=== PATIENT | female | born 1980 | race Asian ===

== ENCOUNTER 2022-03-23 11:38 | Emergency (ER) | payer MEDICARE ==
--- NOTE | 2022-03-23 12:21 | Emergency Department Report ---
HPI - HPI HPI: 42-year-old female multiple sclerosis presents to the hospital complaining of allergic reaction after bee sting. Patient denies previous allergies. Patient developed generalized hives and tongue swelling after bee sting. EMS provided Benadryl 50 mg IV and subcu epi 0.3 mg with improvement in symptoms prior to arrival. Patient states her hives and tongue swelling have improved. Patient did not receive steroids in route <NELSON COPELAND - Last Filed: 03/23/22 15:07> <RACH GORDILLO - Last Filed: 03/23/22 18:17> - General Chief Complaint: Allergic Reaction Time Seen by Provider: 03/23/22 12:16 ED Past Medical Hx - Past Medical History Previous Medical History?: Yes Additional medical history: multiple sclerosis <NELSON COPELAND - Last Filed: 03/23/22 15:07> <RACH GORDILLO - Last Filed: 03/23/22 18:17> - Medications Home Medications: Home Medications Medication Instructions Recorded Confirmed Last Taken Type diphenhydrAMINE [Benadryl CAP] 25 mg PO Q8HR PRN 5 Days #15 03/23/22 Unknown Rx capsule NS predniSONE [Deltasone] 40 mg PO QDAY 5 Days #10 tab NS 03/23/22 Unknown Rx ED Review of Systems ROS: Stated complaint: ALLERGIC REACTION Other details as noted in HPI Comment: All other systems reviewed and negative Other: General: No acute distress Head: Atraumatic Eyes: normal appearance ENT: Moist mucous membranes, no tongue swelling Neck: Normal appearance, no midline tenderness, no stridor Chest: Clear to auscultation bilaterally CV: Regular rate and rhythm Abdomen: Soft, normal bowel sounds, nontender, nondistended, no rebound or guarding Back: Normal inspection Extremity: Normal inspection, full range of motion Neuro: Alert O x 3, no facial asymmetry, speech clear, no gross motor sensory deficit Psych: Appropriate behavior Skin: No rash <NELSON COPELAND - Last Filed: 03/23/22 15:07> ROS: Stated complaint: ALLERGIC REACTION Other details as noted in HPI <RACH GORDILLO - Last Filed: 03/23/22 18:17> Physical Exam - Physical Exam Vital Signs: Vital Signs 03/23/22 12:01 Temperature 98.1 F Pulse Rate 70 Respiratory 16 Rate Blood Pressure 122/78 [Left] O2 Sat by Pulse 100 Oximetry <NELSON COPELAND - Last Filed: 03/23/22 15:07> - Physical Exam Vital Signs: Vital Signs 03/23/22 03/23/22 03/23/22 12:01 12:19 12:31 Temperature 98.1 F Pulse Rate 70 99 H 59 L Respiratory 16 18 15 Rate Blood Pressure 84/54 Blood Pressure 122/78 98/42 [Left] O2 Sat by Pulse 100 99 99 Oximetry 03/23/22 03/23/22 03/23/22 12:45 13:01 13:15 Temperature Pulse Rate 61 62 64 Respiratory 16 16 15 Rate Blood Pressure 90/60 99/65 90/56 Blood Pressure [Left] O2 Sat by Pulse 100 100 100 Oximetry 03/23/22 03/23/22 03/23/22 13:31 13:45 14:00 Temperature Pulse Rate 67 81 83 Respiratory 15 16 16 Rate Blood Pressure 92/50 95/51 92/50 Blood Pressure [Left] O2 Sat by Pulse 100 100 100 Oximetry 03/23/22 03/23/22 03/23/22 14:15 14:31 14:45 Temperature Pulse Rate Respiratory Rate Blood Pressure 94/53 89/57 95/57 Blood Pressure [Left] O2 Sat by Pulse 99 100 99 Oximetry 03/23/22 03/23/22 03/23/22 15:01 15:15 15:31 Temperature Pulse Rate 78 Respiratory 12 Rate Blood Pressure 96/58 96/58 97/59 Blood Pressure [Left] O2 Sat by Pulse 100 99 99 Oximetry 03/23/22 03/23/22 15:45 16:19 Temperature Pulse Rate 83 85 Respiratory 13 20 Rate Blood Pressure 90/57 101/53 Blood Pressure [Left] O2 Sat by Pulse 98 93 Oximetry <RACH GORDILLO - Last Filed: 03/23/22 18:17> ED Course Vital Signs 03/23/22 12:01 Temperature 98.1 F Pulse Rate 70 Respiratory 16 Rate Blood Pressure 122/78 [Left] O2 Sat by Pulse 100 Oximetry <NELSON COPELAND - Last Filed: 03/23/22 15:07> Vital Signs 03/23/22 03/23/2203/23/22 12:01 12:19 12:31 Temperature 98.1 F Pulse Rate 70 99 H 59 L Respiratory 16 18 15 Rate Blood Pressure 84/54 Blood Pressure 122/78 98/42 [Left] O2 Sat by Pulse 100 99 99 Oximetry 03/23/22 03/23/22 03/23/22 12:45 13:01 13:15 Temperature Pulse Rate 61 62 64 Respiratory 16 16 15 Rate Blood Pressure 90/60 99/65 90/56 Blood Pressure [Left] O2 Sat by Pulse 100 100 100 Oximetry 03/23/22 03/23/22 03/23/22 13:31 13:45 14:00 Temperature Pulse Rate 67 81 83 Respiratory 15 16 16 Rate Blood Pressure 92/50 95/51 92/50 Blood Pressure [Left] O2 Sat by Pulse 100 100 100 Oximetry 03/23/22 03/23/22 03/23/22 14:15 14:31 14:45 Temperature Pulse Rate Respiratory Rate Blood Pressure 94/53 89/57 95/57 Blood Pressure [Left] O2 Sat by Pulse 99 100 99 Oximetry 03/23/22 03/23/22 03/23/22 15:01 15:15 15:31 Temperature Pulse Rate 78 Respiratory 12 Rate Blood Pressure 96/58 96/58 97/59 Blood Pressure [Left] O2 Sat by Pulse 100 99 99 Oximetry 03/23/22 03/23/22 15:45 16:19 Temperature Pulse Rate 83 85 Respiratory 13 20 Rate Blood Pressure 90/57 101/53 Blood Pressure [Left] O2 Sat by Pulse 98 93 Oximetry - Reevaluation(s) Reevaluation #1: 03/23/22 17:48 pt signed out to me while just waiting her response to treatment for her allergy to bee sting--pt got up and went to the toilet and urinate. She reports feeling well and ready to be discharged. Last blood pressure noted 107/70 mmHg -- I will discharge patient home with prednisone and benadryl x 5 days 03/23/22 17:49 03/23/22 18:17 <RACH GORDILLO - Last Filed: 03/23/22 18:17> ED Medical Decision Making - Medical Decision Making 42-year-old female presents to the hospital after bee sting. Patient is feeling much better and ambulating in the ED however, she has borderline episodes of hypotension that are responsive to IV fluids. Patient requires some additional monitoring today with IV fluids to ensure resolution of hypotension prior to discharge. Case will be sent to Dr. Gordillo <NELSON COPELAND - Last Filed: 03/23/22 15:07> Critical care attestation.: If time is entered above; I have spent that time in minutes in the direct care of this critically ill patient, excluding procedure time. <NELSON COPELAND - Last Filed: 03/23/22 15:07> Critical care attestation.: If time is entered above; I have spent that time in minutes in the direct care of this critically ill patient, excluding procedure time. <RACH GORDILLO - Last Filed: 03/23/22 18:17> ED Disposition <NELSON COPELAND - Last Filed: 03/23/22 15:07> Is pt being admited?: No Does the pt Need Aspirin: No Time of Disposition: 17:55 <RACH GORDILLO - Last Filed: 03/23/22 18:17> Clinical Impression: Bee sting allergy Bee sting reaction Qualifiers: Encounter type: initial encounter Injury intent: undetermined intent Qualified Code(s): T63.444A - Toxic effect of venom of bees, undetermined, initial encounter Disposition: 01 HOME / SELF CARE / HOMELESS Condition: Stable Instructions: Allergies, Adult, [id number], Bee, Wasp, or Hornet Sting, Adult Additional Instructions: Take and complete your prednisone and Benadryl as prescribed to continue to help your allergy to the peak strain Be careful when taking Benadryl as it could make you sleepy please do not drive with this medicine Increase your daily fluid to help your hydration Call and schedule follow-up with your primary doctor in the next 3 to 5 days for progress Please do not hesitate to call or return to emergency room if your symptoms worsen Prescriptions: diphenhydrAMINE [Benadryl CAP] 25 mg PO Q8HR PRN 5 Days #15 capsule NS PRN Reason: Allergic Reaction predniSONE [Deltasone] 40 mg PO QDAY 5 Days #10 tab NS Referrals: IMELDA ATKINSON MD [Referring] - 3-5 Days
[2022-03-23] MEDS ORDERED: methylPREDNISolone Sod Succinate 125 MG/2 ML INJ IV ONE (12:23)
[2022-03-23] MEDS ORDERED: SODIUM CHLORIDE 0.9% 1000 ML 1,000 ML ONE (12:33)
[2022-03-23] MEDS ORDERED: SODIUM CHLORIDE 0.9% 1000 ML 1,000 ML IV ONE ×2 (12:41→14:01)
[2022-03-23 18:22] VITALS: BP 105/70
== END 2022-03-23 18:26 | disposition home or self-care (01) ==
LOC: ED 11:38
DX: T63.441A Toxic effect of venom of bees, accidental (unintentional), initial encounter (principal); X58.XXXA Exposure to other specified factors, initial encounter; Y92.89 Other specified places as the place of occurrence of the external cause
CPT/HCPCS: 96361; 96374; 99283; J2930; J7030